=== PATIENT | female | born 1950 | race Caucasian/White ===

== ENCOUNTER → 2017-01-14 19:25 | Outpatient (CLI) | payer MEDICARE ==
[2011-03-06 12:38] VITALS: BMI 25.0
== END | disposition home or self-care (01) ==
LOC: D.MAMMO 15:45
DX: Z12.31 Encounter for screening mammogram for malignant neoplasm of breast (principal)

== ENCOUNTER 2017-09-04 13:36 | Outpatient (CLI) | payer MEDICARE ==
[2017-09-04 14:12] VITALS: BP 156/63; BMI 23.6
--- NOTE | 2017-09-04 14:28 | NUR ---
1400 IN ROOM ASSESSMENT COMPLETED. REVIEWED S/S OF BLOOD TRANSFUSION REACTIONS SOB BACK PAIN FEVER. V/S TAKEN. 1410 CONSENT OBTAINED. IV STARTED 20 GAUGE 1 STICK GOOD BLOOD RETURN NO REDNESS OR SWELLING.
--- NOTE | 2017-09-04 14:48 | NUR ---
1448 REPORT TO LONA MISTRY R.N.
--- NOTE | 2017-09-04 14:48 | NUR ---
1447 TYLENOL AND BENADRYL GIVEN EXPLAINED REASON OF MED.
--- NOTE | 2017-09-04 20:05 | NUR ---
PT ARRIVED ON UNIT VIA WHEELCHAIR ESCORTED BY OUT PATIENT NURSE. SITTING IN CHAIR...2ND UNIT OF PRBC'S INFUSING. VITALS STABLE.
--- NOTE | 2017-09-04 20:30 | NUR ---
2ND UNIT OF PR[facility]'S COMPLETE. LINE FLUSHING.
--- NOTE | 2017-09-04 20:35 | NUR ---
GAVE SANDWICH AND SODA FOR HS SNACK.
--- NOTE | 2017-09-04 21:15 | NUR ---
IV REMOVED WITH CATHETER TIP INTACT. PRESSURE DRESSING APPLIED.
--- NOTE | 2017-09-04 21:20 | NUR ---
PT ESCORTED TO FRONT ENTRANCE VIA WHEELCHAIR BY REGULO RAM. ASSISTED INTO AWAITING CAR WITH .
== END 2017-09-04 21:20 | disposition home or self-care (01) ==
LOC: D.OPS 13:36 → D.MS 19:44 → D.OPS 21:20
DX: D64.9 Anemia, unspecified (principal)

== ENCOUNTER 2018-09-11 17:11 | Emergency (ER) | payer MEDICARE ==
[~2018-09-11] VITALS: Ht 149.9 cm; Wt 55.9 kg
[2018-09-11] MEDS ORDERED: LIPITOR20 MG PO (17:16)
[2018-09-11] MEDS ORDERED: JARDIANCE25 MG PO (17:17)
[2018-09-11] MEDS ORDERED: NIFEDIPINE60 MG/BOTT PO (17:17)
[2018-09-11] MEDS ORDERED: PRANDIN1 MG PO (17:17)
[2018-09-11] MEDS ORDERED: ALENDRONATE SOD70 MG PO (17:18)
[2018-09-11] MEDS ORDERED: AMITRIPTYLINE H50 MG PO (17:18)
[2018-09-11] MEDS ORDERED: COCONUT OIL PO (17:19)
[2018-09-11] MEDS ORDERED: MIRALAX17 GM PO (17:19)
[2018-09-11] MEDS ORDERED: DIOVAN320 MG PO (17:19)
[2018-09-11] MEDS ORDERED: C-500500 MG PO (17:20)
[2018-09-11] MEDS ORDERED: SUPER B COMPLE150 MG PO (17:20)
[2018-09-11] MEDS ORDERED: MERIBIN5 MG PO (17:20)
[2018-09-11] MEDS ORDERED: FISH OIL 1,0001 CA1 PO (17:21)
[2018-09-11] MEDS ORDERED: FIBERCON625 MG PO (17:21)
[2018-09-11 18:11] LABS: BASOPHILS 0.2 % (0-2); EOSINOPHILS 0.5 % (0-7); HEMATOCRIT 38.5 % (36.0-48.0); HEMOGLOBIN 12.5 g/dL (12-16); IMMATURE GRANULOCYTES 0.2 % (0-5); LYMPHOCYTES 13.1 % (15-50); MCH 27.7 pg (26.0-34.0); MCHC 32.5 g/dL (31.0-37.0); MCV 85.2 fL (80.0-100.0); MEAN PLATELET VOLUME 10.2 fL (7.4-10.4); MONOCYTES 4.7 % (2-11); NEUTROPHILS 81.3 % (40-80); PLATELET COUNT 277 10x3/uL (130-400); RBC 4.52 10x6/uL (4.00-5.40); RDW 15.1 % (11.5-14.5); WBC 12.9 10x3/uL (4.8-10.8)
[2018-09-11 18:37] LABS: ALBUMIN 4.2 g/dL (3.4-5.0); ANION GAP 19.5 mmol/L (8-16); BILIRUBIN - TOTAL 0.44 mg/dL (0.2-1.3); CALCIUM 8.8 mg/dL (8.5-10.1); CARBON DIOXIDE 20.9 mmol/L (21.0-32.0); CREATININE - SERUM 1.2 mg/dL (0.6-1.3); POTASSIUM - SERUM 3.4 mmol/L (3.5-5.1); PROTEIN - SERUM 7.9 g/dL (6.4-8.2)
[2018-09-11] MEDS ORDERED: CHRONULAC30 ML PO (20:04)
[2018-09-11] MEDS ORDERED: ATIVAN1 MG PO (20:04)
== END 2018-09-11 20:16 | disposition home or self-care (01) ==
LOC: D.ER 17:11
PROVIDERS: Family Medicine
DX: R42 Dizziness and giddiness (principal); K59.00 Constipation, unspecified; E11.9 Type 2 diabetes mellitus without complications; I10 Essential (primary) hypertension; Z85.038 Personal history of other malignant neoplasm of large intestine; Z85.048 Personal history of other malignant neoplasm of rectum, rectosigmoid junction, and anus